=== PATIENT | male | born 1995 | race African-American/Black ===

== ENCOUNTER 2017-03-17 12:11 | Emergency (ER) | payer BC, MEDICAID ==
[~2017-03-17] VITALS: Ht 172.7 cm; Wt 100.0 kg
[2017-03-17 12:16] VITALS: BP 12/67
[2017-03-17] MEDS ORDERED: [UNRECOGNIZED DRUG - CODE] PO (12:20)
== END 2017-03-17 14:44 | disposition home or self-care (01) ==
LOC: ER 12:37
DX: J06.9 Acute upper respiratory infection, unspecified (principal)
CPT/HCPCS: 99283